=== PATIENT | male | born 1945 | race Caucasian/White ===

== ENCOUNTER 2024-03-21 19:20 | Inpatient (IN) | payer MEDICARE ==
[2024-03-21] MEDS ORDERED: Sodium Chloride 0.9% 10 ML Syringe FLUSH PRN (20:18)
[2024-03-21 20:50] LABS: BASOPHILS PERCENT AUTO 0.5 % (0.1-1.3); HEMATOCRIT 30.7 % (38.4-49.7); HEMOGLOBIN 10.5 g/dL (12.9-16.9); IMMATURE GRAN ABSOLUTE AUTO 0.03 K/uL (0.00-0.23); IMMATURE GRAN PERCENT AUTO 1.5 % (0.0-0.7); MEAN CORPUSCULAR HEMOGLOBIN 29.5 pg (31.6-35.5); MEAN CORPUSCULAR HGB CONC 34.2 g/dL (31.6-35.5); MEAN CORPUSCULAR VOLUME 86.2 fL (81.4-99.0); MONOCYTES ABSOLUTE AUTO 0.89 K/uL (0.20-0.90); MONOCYTES PERCENT AUTO 44.5 % (3.3-12.6); NEUTROPHILS ABSOLUTE AUTO 0.47 K/uL (1.0-7.6); NEUTROPHILS PERCENT AUTO 23.5 % (40.0-78.1); PLATELET COUNT,PLT 332 K/uL (130-375); RED BLOOD CELL COUNT 3.56 M/uL (4.14-5.76)
[2024-03-21] MEDS: Lactated Ringers 1,000 ML IV ONE (20:50)
[2024-03-21 21:00] LABS: BASOPHILS ABSOLUTE AUTO 0.01 K/uL (0.00-0.10)
[2024-03-21 21:12] LABS: A/G RATIO 0.6 (1.2-2.2); ALANINE AMINOTRANSFERASE,ALT 58 U/L (12-78); ALBUMIN 2.6 g/dL (3.4-5.0); ALKALINE PHOSPHATASE 126 U/L (46-116); ASPARTATE AMNIOTRANSFERASE,AST 28 U/L (15-37); BILIRUBIN TOTAL 0.7 mg/dL (0.2-1.0); BLOOD UREA NITROGEN,BUN 24 mg/dL (7-18); CALCIUM 8.4 mg/dL (8.5-10.1); CARBON DIOXIDE,CO2 26 mmol/L (21-32); CHLORIDE,CL 96 mmol/L (100-108); CREATININE 1.3 mg/dL (0.8-1.3); EST CRCL DRUG DOSING (CG) 40.08 mL/min; ESTIMATED GFR 56 mL/min (>60); GLUCOSE RANDOM 125 mg/dL (74-106); SODIUM,NA 131 mmol/L (140-148)
[2024-03-21] MEDS: Piperacillin/Tazobactam 4.5 GM in Sodium Chloride 0.9% 100 ML IV ONE (22:27)
[2024-03-22] MEDS: Sodium Chloride 0.9% 100 ML IV STA
[2024-03-22] MEDS: Iopamidol 755 Mg/ML 100 ML Bottle IV STA
[2024-03-22 00:34] LABS: APPEARANCE,URINE CLEAR (CLEAR); BILIRUBIN,URINE NEGATIVE (NEGATIVE); COLOR,URINE YELLOW (YELLOW); GLUCOSE,URINE NEGATIVE (NEGATIVE); KETONES,URINE NEGATIVE (NEGATIVE); LEUKOCYTE ESTERASE,URINE NEGATIVE (NEGATIVE); NITRITE,URINE NEGATIVE (NEGATIVE); OCCULT BLOOD,URINE TRACE-INTACT (NEGATIVE); PROTEIN,URINE NEGATIVE (NEGATIVE); UROBILINOGEN,URINE 0.2 EU/dL (0.2-1.0)
[2024-03-22 00:43] LABS: AMORPHOUS SEDIMENT,URINE NOT SEEN; BACTERIA,URINE FEW; EPITHELIAL CELLS,URINE RARE; MUCUS,URINE NOT SEEN; RBC,URINE 0-5 (0-5); WBC,URINE 0-5 (0-5)
[2024-03-22] MEDS ORDERED: Sennosides/Docusate Sodium 50-8.6 MG Tab PO PRN (01:16)
[2024-03-22] MEDS ORDERED: Melatonin 3 MG Tab PO PRN (01:16)
[2024-03-22] MEDS ORDERED: Acetaminophen 325 MG Tab PO PRN (01:16)
[2024-03-22] MEDS ORDERED: Prochlorperazine 10 MG/2 ML SDV IVPUSH PRN (01:16)
[2024-03-22] MEDS ORDERED: Albuterol/Ipratropium 3.0-0.5 MG/3 ML Neb Soln NEB PRN (01:16)
[2024-03-22] MEDS: Potassium Chloride 10 MEQ in Premix Bag 1 BAG IV SCH ×2 (01:39→08:46)
[2024-03-22] MEDS: Cefepime 1 GM in Sodium Chloride 0.9% 50 ML IV SCH (01:49)
[2024-03-22] MEDS: Magnesium Sulfate/Water 2 GM in Premix Bag 1 BAG IV SCH ×2 (02:22→10:29)
[2024-03-22] MEDS ORDERED: Loperamide 2 MG Cap PO PRN (03:28)
[2024-03-22] MEDS: Sodium Chloride 0.9% 1,000 ML IV SCH ×2 (03:49)
[2024-03-22 06:03] LABS: HEMATOCRIT 27.9 % (38.4-49.7); HEMOGLOBIN 9.4 g/dL (12.9-16.9); MEAN CORPUSCULAR HEMOGLOBIN 29.1 pg (31.6-35.5); MEAN CORPUSCULAR HGB CONC 33.7 g/dL (31.6-35.5); MEAN CORPUSCULAR VOLUME 86.4 fL (81.4-99.0); PLATELET COUNT,PLT 315 K/uL (130-375); RED BLOOD CELL COUNT 3.23 M/uL (4.14-5.76)
[2024-03-22 06:17] LABS: CALCIUM 7.8 mg/dL (8.5-10.1); CREATININE 1.3 mg/dL (0.8-1.3); EST CRCL DRUG DOSING (CG) 39.42 mL/min; POTASSIUM,K 3.2 mmol/L (3.6-5.2)
[2024-03-22 06:37] LABS: ANION GAP 13.2 mmol/L (5.0-14.0)
[2024-03-22 06:39] LABS: BAND ABSOLUTE MAN 0.24 K/uL; BAND PERCENT MAN 6 % (5-11); LYMPHOCYTES ABSOLUTE MAN 1.56 K/uL (0.8-3.3); LYMPHOCYTES PERCENT MAN 39 % (24-44); MONOCYTES ABSOLUTE MAN 1.16 K/uL (0.20-0.90); MONOCYTES PERCENT MAN 29 % (2-6); NEUTROPHILS ABSOLUTE MAN 1.04 K/uL (1.0-7.6); SEG NEUTROPHILS PERCENT MAN 26 % (36-66)
[2024-03-22] MEDS: Lactobacillus Rhamnosus GG (Probiotic) Cap PO SCH (08:10)
[2024-03-22] MEDS: metFORMIN 500 MG Tab PO SCH (08:10)
[2024-03-22] MEDS: Folic Acid 1 MG Tab PO SCH (08:10)
[2024-03-22] MEDS: Dexamethasone 2 MG Tab PO SCH (08:10)
[2024-03-22] MEDS: Pantoprazole 40 MG Tab.CR PO SCH (08:10)
[2024-03-22] MEDS ORDERED: Hydrochlorothiazide 25 MG Tab PO SCH (09:00)
[2024-03-22] MEDS: Potassium Chloride 20 MEQ Tab.ER PO ONE (11:43)
[2024-03-22] MEDS ORDERED: atorvaSTATin 10 MG Tab PO SCH (21:00)
== END 2024-03-22 12:06 | disposition home or self-care (01) | DRG 809 ==
LOC: JP.ED 19:20 → JP.MS 22:48
PROVIDERS: ADMIT Registered Nurse; ATTEND Internal Medicine
DX: D70.9 Neutropenia, unspecified (principal); K52.1 Toxic gastroenteritis and colitis; E87.6 Hypokalemia; E83.42 Hypomagnesemia; E11.9 Type 2 diabetes mellitus without complications; K21.9 Gastro-esophageal reflux disease without esophagitis; Z86.16 Personal history of COVID-19; Z79.899 Other long term (current) drug therapy; Z79.84 Long term (current) use of oral hypoglycemic drugs; R11.2 Nausea with vomiting, unspecified; R53.1 Weakness; I10 Essential (primary) hypertension; I25.10 Atherosclerotic heart disease of native coronary artery without angina pectoris; E86.0 Dehydration; R00.0 Tachycardia, unspecified; E78.00 Pure hypercholesterolemia, unspecified; Z85.118 Personal history of other malignant neoplasm of bronchus and lung; Z95.0 Presence of cardiac pacemaker; Z87.891 Personal history of nicotine dependence; T45.1X5A Adverse effect of antineoplastic and immunosuppressive drugs, initial encounter; Y92.89 Other specified places as the place of occurrence of the external cause
CPT/HCPCS: 36415; 71045; 80053; 83605; 83735; 84145; 84484; 85025; 86140; 87040 ×2; 96361; 96365; 99285; J2543; J3490; J7120; 71275; 80048; 81001; 97161-GP; 99222; 99238; A9270-GY; J0692; J1642; J3475; J3480; J7030; J8540; Q9967; U0002